=== PATIENT | male | born 1980 | race Caucasian/White ===

== ENCOUNTER 2024-01-26 12:13 | Emergency (ER) | payer MEDICARE, OTHER, MEDICAID, SELFPAY ==
[2024-01-26] VITALS (10 sets, daily range): BP systolic 119–160; BP diastolic 66–100; PULSE 92–107; RESP 24; TEMP 36.3; O2SAT 91–94
--- NOTE | 2024-01-26 12:27 | DI.RAD.S_ITS ---
PROCEDURE: XR CHEST 1V INDICATIONS: suspected sepsis TECHNIQUE: One view of the chest was acquired. COMPARISON: None. FINDINGS: Surgical changes and devices: Cholecystectomy clips. Lungs and pleura: Low lung volumes. Streaky left basilar opacity. Mediastinum: Mediastinal contours appear normal. Heart size is normal. Bones and chest wall: No suspicious bony lesions. Overlying soft tissues appear unremarkable. Gaseous distension of the large bowel. IMPRESSION: Streaky left basilar opacity, probably atelectasis in the setting of low lung volumes. Significant gaseous distension of the large bowel. Dictated by: Uriah Nayak M.D. on 01/26/2024 at 13:40 Approved by: Uriah Nayak M.D. on 01/26/2024 at 13:40
[2024-01-26 12:58] LABS: Add Manual Diff / Slide Review NO; Basophils Absolute Auto 0 /uL (0-100); Basophils Percent Auto 0.5 % (0-2); Eosinophils Absolute Auto 200 /uL (0-450); Eosinophils Percent Auto 2.1 % (2-4); Hematocrit 41.6 % (41-53); Lymphocytes Absolute Auto 2100 /uL (1100-4500); Lymphocytes Percent Auto 24.1 % (25-40); Mean Corpuscular HGB Conc 33.8 % (30-36); Mean Corpuscular Hemoglobin 32.8 PG (26-34); Mean Corpuscular Volume 97.1 fL (80-100); Monocytes Absolute Auto 900 /uL (0-900); Monocytes Percent Auto 10.4 % (3-14); Neutrophils Absolute Auto 5400 /uL (1500-7000); Neutrophils Percent Auto 62.9 % (50-75); Platelet Count 179 X10^3/uL (150-400); Red Blood Cell Count 4.28 X10^6/uL (4.5-5.9); White Blood Cell Count 8.5 X10^3/uL (4.5-11.0)
[2024-01-26 13:04] LABS: Prothrombin Time 11.5 SECONDS (9.4-12.5)
[2024-01-26 13:05] LABS: Alanine Aminotransferase 18 IU/L (<50); Albumin 3.8 g/dL (3.5-5.0); Alkaline Phosphatase 83 U/L (38-126); Aspartate Aminotransferase 22 IU/L (17-59); Bilirubin Total 0.5 mg/dL (0.2-1.3); Blood Urea Nitrogen 18 mg/dL (9-20); Calcium 9.2 mg/dL (8.4-10.2); Carbon Dioxide 30 mmol/L (22-32); Chloride 102 mmol/L (98-107); Estimated Glomerular Filt Rate > 60 mL/min (>60); Glucose 165 mg/dL (70-100); Lipase 53 U/L (23-300); Potassium 3.9 mmol/L (3.4-5.1); Sodium 140 mmol/L (137-145); Total Protein 7.8 g/dL (6.3-8.2)
[2024-01-26 13:07] LABS: HEMOLYSIS 61 (0-50); PTT Partial Thromboplastin Tim 41 SECONDS (25.1-36.5)
[2024-01-26] MEDS: SODIUM CHLORIDE 0.9% 1,000 ML 1000 ML IV (13:16)
[2024-01-26 13:22] LABS: Procalcitonin 0.058 ng/mL (<0.5)
--- NOTE | 2024-01-26 13:54 | EKG_ITS ---
[facility] [address] [place] [address] Test Date: 2024-01-26 Pat Name: Hugh Melton Department: [facility] Room: Gender: Male [employer]ural Project [employer]: : 1980 Requested By: Order Number: [id number] Reading MD: Nick Saxena MD Measurements Intervals Berry Rate: 96 P: 27 WI: 168 QRS: 10 QRSD: 70 T: 18 QT: 372 QTc: 469 Interpretive Statements Normal sinus rhythm Nonspecific T wave abnormality NO PRIOR TRACING Electronically Signed On 01-26-2024 14:59:22 PDT by Nick Saxena MD
[2024-01-26 14:22] LABS: Adenovirus Not Detected (Not Detect); B. parapertussis Not Detected (Not Detecte); Bordetella pertussis Not Detected (Not Detect); Chlamydophila pneumoniae Not Detected (Not Detect); Coronavirus 229E Not Detected (Not Detect); Coronavirus HKU1 Not Detected (Not Detect); Coronavirus NL 63 Not Detected (Not Detect); Coronavirus OC43 Not Detected (Not Detect); Human Metapneumovirus Not Detected (Not Detect); Human Rhinovirus/Enterovirus Not Detected (Not Detect); Influenza A Not Detected (Not Detect); Influenza B Not Detected (Not Detect); Mycoplasma pneumoniae Not Detected (Not Detect); Parainfluenza Virus 1 Not Detected (Not Detect); Parainfluenza Virus 2 Not Detected (Not Detect); Parainfluenza Virus 3 Not Detected (Not Detect); Parainfluenza Virus 4 Not Detected (Not Detect); Respiratory Syncytial Virus Not Detected (Not Detect); SARS- CoV-2 Not Detected (Not Detecte)
--- NOTE | 2024-01-26 14:26 | ED_ITS ---
HPI - General Adult General Chief complaint: Shortness of Breath/Dyspnea Stated complaint: LOC this AM, low oxygen Time Seen by Provider: 01/26/24 14:09 Source: patient Mode of arrival: Wheelchair Limitations: no limitations History of Present Illness HPI narrative: 43-year-old male history of diabetes, seizure disorder, hypothyroidism congenital orthopedic disorders and is nonverbal currently lives in a correction. Patient has been visiting with parents locally. Parents states he seemed a little under the weather last couple days and this morning either fell asleep or possibly passed out at the breakfast table. They state that he was pretty sleepy this morning. He does have a history of seizures but states he typically turns blue when that happens. Did not have any color changes or any tonic- clonic or other seizure activity that they appreciated. They state no fevers that they are aware of, they noted a little bit of cough overnight and some difficulty with sleeping secondary to cough. They state the cough is new was nonproductive. No complaints of pain or indications of pain but they state patient has pretty stoic. No vomiting has been eating regularly. Has chronic constipation they are not sure when his last bowel movement. They note that he does not normally live with them. He uses a brief for urination. They state patient seems to be back at his normal baseline. They did check his O2 sat at home and states that it was low. Has been appropriate overall here. Home medications include phenytoin and valproic acid, metformin, medication for hypothyroidism and constipation. Has had a prior cholecystectomy. 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 They do not report any drug allergies. Related Data Previous Rx's Medication Instructions Recorded amoxicillin 875 mg-potassium 1 tab PO BID #14 tabs 01/26/24 clavulanate 125 mg tablet Allergies Allergy/AdvReac Type Severity Reaction Status Date / Time No Known Drug Allergies Allergy Verified 01/26/24 12:25 Review of Systems Review of Systems ROS Unobtainable: All systems reviewed & are unremarkable except as noted in HPI and below Exam Narrative Exam Narrative: GEN: well nourished, well appearing male, alert, patient appears to be in mild distress. Patient is interactive but does not respond to questions or commands. HEENT: Atraumatic, pupils are equal round reactive to light, extraocular movements are intact, nares are clear, there is no conjunctival pallor. Throat is clear without any exudates, erythema, tonsillar enlargement or uvular deviation, patient does smile and wave during the examination. HEART: Regular rate and rhythm without murmur, clicks, rubs. pulses are equal in upper and lower extremities LUNGS:Lungs clear to auscultation, no wheezes, rales, crackles, chest moves symmetrically ABD:bowel sounds normal, nondistended. Soft, non-tender, no guarding, rebound, rigidity, no masses noted, no hepatosplenomegaly :No CVA tenderness. MSCL: Non-tender, no muscle atrophy, normal range of motion bilateral upper extremities, patient does have decreased motion bilateral lower extremities minimal movement parents state this is consistent. NEURO:CN 2-12 intact, sensation normal SKIN: No rash, erythema or other skin changes noted. Initial Vital Signs Initial Vital Signs: Vital Signs Temperature 97.3 F L 01/26/24 12:22 Pulse Rate 104 H 01/26/24 12:22 Respiratory Rate 24 01/26/24 12:22 Blood Pressure 160/89 H 01/26/24 12:22 Pulse Oximetry 91 01/26/24 12:22 Oxygen Delivery Method Room Air 01/26/24 12:22 Course Orders Ordered: ED Orders 01/26/24 12:27 XR chest 1V Stat EKG-12 Lead Stat RT Consult Eval and Treat NOW 01/26/24 12:40 Complete Blood Count AUTO DIFF Stat Comprehensive Metabolic Panel Stat Lactate (Lactic Acid) Stat Lipase Stat PTT Partial Thromboplastin Juan Stat Procalcitonin Stat Prothrombin Time INR Stat Respiratory Panel (Film Array) Stat 01/26/24 13:00 Blood Culture Stat 01/26/24 15:20 Urine Culture Stat Urine Microscopic Stat Discontinued Medications Sodium Chloride (Normal Saline 0.9%) 1,000 mls @ 1,000 mls/hr IV BOLUS ONE Stop: 01/26/24 13:26 Last Infusion: 01/26/24 14:00 Dose: Infused Documented By: Admin: 01/26/24 13:16 Dose: 1,000 mls/hr Documented By: DARLEEN Ondansetron HCl (Ondansetron 4 Mg/2 Ml Inj) 4 mg IV NOW PRN PRN Reason: Nausea And Vomiting Ondansetron HCl (Ondansetron 4 Mg Odt) 4 mg SL NOW PRN PRN Reason: Nausea And Vomiting Vital Signs Vital signs: Vital Signs - 8 hr 01/26/24 12:22 01/26/24 12:47 01/26/24 12:47 Temperature 97.3 F L Pulse Rate 104 H 106 H Respiratory Rate 24 Blood Pressure 160/89 H 148/100 H Pulse Oximetry 91 91 Oxygen Delivery Method Room Air Room Air 01/26/24 13:00 01/26/24 13:30 01/26/24 13:30 Temperature Pulse Rate 107 H 98 H Respiratory Rate Blood Pressure 139/89 Pulse Oximetry 91 93 Oxygen Delivery Method 01/26/24 14:00 01/26/24 14:00 01/26/24 14:30 Temperature Pulse Rate 103 H 101 H Respiratory Rate Blood Pressure 139/96 H Pulse Oximetry 93 94 Oxygen Delivery Method 01/26/24 14:30 01/26/24 15:00 01/26/24 15:00 Temperature Pulse Rate 97 H Respiratory Rate Blood Pressure 119/69 135/66 Pulse Oximetry 94 Oxygen Delivery Method 01/26/24 15:30 01/26/24 15:33 01/26/24 15:33 Temperature Pulse Rate 95 H 94 H Respiratory Rate Blood Pressure 120/77 Pulse Oximetry 93 93 Oxygen Delivery Method 01/26/24 16:00 Temperature Pulse Rate 92 H Respiratory Rate Blood Pressure Pulse Oximetry 93 Oxygen Delivery Method Medical Decision Making Lab Data 01/26/24 12:40 01/26/24 12:40 Labs: Lab Results 01/26/24 01/26/24 Range/Units 12:40 15:20 WBC 8.5 (4.5-11.0) X10^3/uL RBC 4.28 L (4.5-5.9) X10^6/uL Hgb 14.0 (13.5-17.5) g/dL Hct 41.6 (41-53) % MCV 97.1 (80-100) fL MCH 32.8 (26-34) PG MCHC 33.8 (30-36) % RDW 14.0 (11.6-14.8) % Plt Count 179 (150-400) X10^3/uL Neut % (Auto) 62.9 (50-75) % Lymph % (Auto) 24.1 L (25-40) % [place] % (Auto) 10.4 (3-14) % Eos % (Auto) 2.1 (2-4) % Baso % (Auto) 0.5 (0-2) % Neut # (Auto) 5400 (6596-5509) /uL Lymph # (Auto) 2100 (0633-5864) /uL [place] # (Auto) 900 (0-900) /uL Eos # (Auto) 200 (0-450) /uL Baso # (Auto) 0 (0-100) /uL PT 11.5 (9.4-12.5) SECONDS INR 1.0 (0.9-1.3) APTT 41 H (25.1-36.5) SECONDS Sodium 140 (137-145) mmol/L Potassium 3.9 (3.4-5.1) mmol/L Chloride 102 (98-107) mmol/L Carbon Dioxide 30 (22-32) mmol/L BUN 18 (9-20) mg/dL Creatinine 0.45 L (0.66-1.25) mg/dL Estimated GFR > 60 (>60) mL/min BUN/Creatinine Ratio 40.0 H (6-22) Glucose 165 H (70-100) mg/dL Lactate 2.0 (0.7-2.1) mmol/L Calcium 9.2 (8.4-10.2) mg/dL Total Bilirubin 0.5 (0.2-1.3) mg/dL AST 22 (17-59) IU/L ALT 18 (<50) IU/L Alkaline Phosphatase 83 (38-126) U/L Total Protein 7.8 (6.3-8.2) g/dL Albumin 3.8 (3.5-5.0) g/dL Globulin 4.0 (1.7-4.1) g/dL Albumin/Globulin Ratio 1.0 (1.0-2.8) Lipase 53 (23-300) U/L Procalcitonin 0.058 (<0.5) ng/mL Urine RBC 0-1/hpf (0-5/HPF) Urine WBC 0-1/hpf (0-5/HPF) Ur Squamous Epith Cells 0-1 /hpf (0-5/HPF) Urine Bacteria Occasional (0-1) (None) Ur Culture Indicated? Cult not indicated Vol Urine Centrifuged 10ml (spun) Chlamy pneumoniae PCR Not detected (Not Detect) Adenovirus (PCR) Not detected (Not Detect) B.parapertussis DNA PCR Not detected (Not Detecte) Coronavirus OC43 (PCR) Not detected (Not Detect) Coronavirus HKU1 (PCR) Not detected (Not Detect) Coronavirus 229E (PCR) Not detected (Not Detect) SARS-CoV-2 (PCR) Not detected (Not Detecte) Coronavirus NL63 (PCR) Not detected (Not Detect) Human Metapneumovir PCR Not detected (Not Detect) Influenza Type A (PCR) Not detected (Not Detect) Influenza Type B (PCR) Not detected (Not Detect) M. pneumoniae (PCR) Not detected (Not Detect) Parainfluenza 1 (PCR) Not detected (Not Detect) Parainfluenza 2 (PCR) Not detected (Not Detect) Parainfluenza 3 (PCR) Not detected (Not Detect) Parainfluenza 4 (PCR) Not detected (Not Detect) RSV (PCR) Not detected (Not Detect) Entero/Rhino (PCR) Not detected (Not Detect) Urine Dip Bedside Urine Glucose Negative Bedside Urine Bilirubin - Negative Bedside Urine Ketone - Negative Urine Specific [place] 1.015 Bedside Urine Occult Blood - Negative Bedside Urine pH 8.0 Bedside Urine Protein - Negative Bedside Urine Urobilinogen - Negative Bedside Urine Nitrite - Negative Bedside Urine Leukocytes +/- 15 Esterase Point of care testing: Urine Dip Bedside Urine Glucose Negative Bedside Urine Bilirubin - Negative Bedside Urine Ketone - Negative Urine Specific [place] 1.015 Bedside Urine Occult Blood - Negative Bedside Urine pH 8.0 Bedside Urine Protein - Negative Bedside Urine Urobilinogen - Negative Bedside Urine Nitrite - Negative Bedside Urine Leukocytes +/- 15 Esterase Imaging Data Chest x-ray: Radiologist's Impression: Close Chest X-Ray (Signed) Uriah Nayak - 01/26/[address] [address] XRay Report Signed Patient: Hugh Melton MR#: [id number] : 1980 Acct:[id number] Age/Sex: 43 / M Date of Service: 01/26/24 Loc: ED Accession Number: [id number] Procedure: XR chest 1V Ordering Provider: Annelise Hart D.O. PROCEDURE: XR CHEST 1V INDICATIONS: suspected sepsis TECHNIQUE: One view of the chest was acquired. COMPARISON: None. FINDINGS: Surgical changes and devices: Cholecystectomy clips. Lungs and pleura: Low lung volumes. Streaky left basilar opacity. Mediastinum: Mediastinal contours appear normal. Heart size is normal. Bones and chest wall: No suspicious bony lesions. Overlying soft tissues appear unremarkable. Gaseous distension of the large bowel. IMPRESSION: Streaky left basilar opacity, probably atelectasis in the setting of low lung volumes. Significant gaseous distension of the large bowel. Dictated by: Uriah Nayak M.D. on 01/26/2024 at 13:40 Approved by: Uriah Nayak M.D. on 01/26/2024 at 13:40 ECG Data Attestation: I personally reviewed and interpreted this ECG as follows: Interpretation: Sinus rhythm nonspecific T-wave change rate of 96 DC 168 QRS is 70 QTC 469. MDM Narrative Medical decision making narrative: 43-year-old nonverbal lives in a correction but visiting parents currently. They noted a cough patient fell asleep in his cereal bowl earlier today. Labs show white count 8.5 hemoglobin of 14 platelets of 179. Closer appropriate electrolytes are normal creatinine 0.45, glucose is 165 lactate 2 calcium is negative LFTs are negative, procalcitonin 0.058. EKG shows sinus rhythm nonspecific change. Chest x-ray streaky left basilar opacity probably atelectasis setting of low lung volume significant gaseous distention of the large bowel. Respiratory panel is negative Urine obtained with condom catheter. Care urine shows leukocyte esterase. One red cell 1 white cell 1 squamous, occasional bacteria,. Patient received a L of fluid. Patient taking juice here in the department. Discussed with parents possibility of activity although they state was not typical presentation. Patient has a little bit of atelectasis on his chest x- ray they note he seems a little bit under the weather could treat for infection. Discussed with parents we will cover with course of oral antibiotic. Patient has continued meet alert appropriate parents say no changes here vitals are overall appropriate with the overall appropriate labs. Discussed possibility that there was some seizure activity but parents state it does not look like his prior episodes of seizure activity. Discussed return precautions all questions answered. Discharge Plan Departure Patient Disposition: Home Clinical Impression: Pneumonia Instructions: DI for Pneumonia -- Adult Activity Restrictions/Additional Instructions: Your labs overall are appropriate today, your chest x-ray shows possible small amount of pneumonia. I would monitor for any significant changes or seizure activity although from your description today seems less likely to be the source of his changes today. You have been prescribed an oral antibiotic please take this until completed. Prescription sent to [facility] in [place]. Please start this today. Please return for new or recurrent symptoms, fevers, difficulty with breathing, color changes, alterations in mental status, persistent vomiting, black or bloody stools difficulty with urination or other new or concerning changes. Prescriptions: New amoxicillin-pot clavulanate 875-125 mg tablet 1 tab PO BID Qty: 14 0RF Referrals: Miscellaneous,Doctor, MD [Primary Care Provider] - Stand Alone Forms: Patient Portal/API
[2024-01-26 15:58] LABS: Bacteria Urine Occasional (0-1); Culture Indicated Urine Cult Not Indicated; RBC Urine 0-1/HPF (0-5/HPF); Squamous Epithelial Cell Urine 0-1 /HPF (0-5/HPF); Urine Volume 10mL (spun); WBC Urine 0-1/HPF (0-5/HPF)
== END 2024-01-26 16:26 | disposition home or self-care (01) ==
PROVIDERS: Emergency Provider Emergency Medicine
DX: J18.9 Pneumonia, unspecified organism (principal); Z11.52 Encounter for screening for COVID-19
CPT/HCPCS: 36415; 71045; 80053; 81003; 81015; 83605; 83690; 84145; 85025; 85610; 85730; 87040; 87077; 87086; 87147; 87186; 87633; 93005; 93010; 96360; 99284